=== PATIENT | male | born 1965 | race Caucasian/White ===

== ENCOUNTER 2021-12-30 13:08 | Day surgery (SDC) | payer OTHER ==
[2021-12-28 16:43] VITALS: BMI 29.4
[~2021-12-30 13:08] MED LIST: BUPIVACAINE HCL 100 ML ONE; BUPIVACAINE LIPOSOME/PF (EXPAREL) 266 MG/20 ML VIAL ONE; CEFAZOLIN 2 GM in DEXTROSE 5%-WATER - 50 ML IVPB ONE; DEXAMETHASONE SOD PHOSPHATE 4 MG/1 ML VIAL ONE; HYDROmorphone HCL/PF 1 MG/ML VIAL ONE; KETOROLAC TROMETHAMINE 30 MG/1 ML VIAL ONE; MAG HYDROX/AL HYDROX/SIMETH 30 ML UNIT-DOSE CUP PO PRN; MAGNESIUM HYDROX 2400MG/30ML ORAL SUSPENSION 30 ML CUP PO PRN; MIDAZOLAM HCL 2 MG/2 ML SINGLE DOSE VIAL ONE; ONDANSETRON 4 MG/2 ML VIAL IVPUSH PRN; ONDANSETRON 4 MG/2 ML VIAL ONE; PROPOFOL 40 ML ONE; ROCURONIUM BROMIDE 50 MG/5 ML SYRINGE ONE; SUCCINYLCHOLINE CHLORIDE 200 MG/10 ML SYRINGE ONE; TRANEXAMIC ACID 1000 MG/10 ML VIAL IVPUSH ONE; TRANEXAMIC ACID 1000 MG/10 ML VIAL ONE; VANCOMYCIN 1,000 MG VIAL (RESTRICTED TO ID ONLY) ONE
[2021-12-30] MEDS ORDERED: ACETAMINOPHEN 1000 MG/100 ML BAG IVPB ONE ×2 (13:12)
[2021-12-30] MEDS ORDERED: oxyCODONE HCL 5 MG TABLET PO PRN ×4 (13:12→13:39)
[2021-12-30] MEDS ORDERED: ACETAMINOPHEN 500 MG TABLET (FP) PO SCH (13:15)
[2021-12-30] MEDS ORDERED: LACTATED RINGERS SOLUTION 1,000 ML IV SCH ×2 (13:15→13:45)
[2021-12-30] MEDS ORDERED: KETOROLAC TROMETHAMINE 30 MG/1 ML VIAL IVPUSH SCH (13:15)
[2021-12-30] MEDS ORDERED: MAG HYDROX/AL HYDROX/SIMETH 30 ML UNIT-DOSE CUP PO PRN (13:39)
[2021-12-30] MEDS ORDERED: MAGNESIUM HYDROX 2400MG/30ML ORAL SUSPENSION 30 ML CUP PO PRN (13:39)
[2021-12-30] MEDS ORDERED: ONDANSETRON 4 MG/2 ML VIAL IVPUSH PRN (13:39)
[2021-12-30] MEDS: KETOROLAC TROMETHAMINE 30 MG/1 ML VIAL IVPUSH SCH ×2 (15:47→21:17)
[2021-12-30] MEDS ORDERED: CEFAZOLIN SODIUM 2 GM in DEXTROSE 5%-WATER 100 ML IVPB SCH (17:00)
[2021-12-30] MEDS: CEFAZOLIN SODIUM 2 GM in DEXTROSE 5%-WATER 100 ML IVPB SCH (17:11)
[2021-12-30] MEDS ORDERED: VANCOMYCIN 1 GM in D5W (PRE-DOCKED) 1,000 MG/250 ML IVPB ONE ×2 (17:30→21:30)
[2021-12-30] MEDS: ACETAMINOPHEN 500 MG TABLET (FP) PO SCH (21:15)
[2021-12-30] MEDS: ASPIRIN 325 MG TABLET PO SCH (21:16)
[2021-12-30] MEDS: SENNOSIDES/DOCUSATE COMBO (SENNA PLUS) TABLET (UD) PO SCH (21:16)
[2021-12-30] MEDS ORDERED: SENNOSIDES/DOCUSATE COMBO (SENNA PLUS) TABLET (UD) PO SCH (22:00)
[2021-12-30] MEDS ORDERED: oxyCODONE HCL 10 MG SUSTAINED ACTING TABLET PO SCH (22:00)
[2021-12-30] MEDS ORDERED: ASPIRIN 325 MG TABLET PO SCH (22:00)
[2021-12-30] MEDS: oxyCODONE HCL 10 MG SUSTAINED ACTING TABLET PO SCH (23:09)
[2021-12-31] MEDS: CEFAZOLIN SODIUM 2 GM in DEXTROSE 5%-WATER 100 ML IVPB SCH ×2 (02:03→09:07)
[2021-12-31] MEDS: ACETAMINOPHEN 500 MG TABLET (FP) PO SCH ×3 (02:03→09:08)
[2021-12-31 08:30] LABS: HEMATOCRIT 36.4 % (35.4-49); HEMOGLOBIN 12.7 G/dL (11.7-16.9); MCH 31.4 pg (25.7-33.7); MCHC 34.9 g/dl (32.0-35.9); MEAN PLT VOLUME 8.8 fl (7.5-11.1); PLATELET COUNT 256.9 10^3/uL (134-434); RBC 4.04 10^6/uL (4.00-5.60); RDW 13.4 % (11.9-15.9)
[2021-12-31 08:35] LABS: CALCIUM 8.6 mg/dl (8.5-10); CREATININE 0.9 mg/dl (0.55-1.3)
[2021-12-31] MEDS ORDERED: MULTIVITAMINS (DAILY MVI) TABLET (FP) PO SCH ×2 (10:00)
[2021-12-31] MEDS ORDERED: LISINOPRIL 5 MG TABLET PO SCH ×2 (10:00)
[2021-12-31] MEDS ORDERED: HYDROCHLOROTHIAZIDE 25 MG TABLET (FP) PO SCH ×2 (10:00)
[2021-12-31] MEDS ORDERED: PANTOPRAZOLE 40 MG TABLET PO SCH ×2 (10:00)
[2021-12-31] MEDS ORDERED: ASPIRIN 325 MG TABLET PO SCH (10:00)
[2021-12-31] MEDS: ASPIRIN 325 MG TABLET PO SCH (10:04)
[2021-12-31] MEDS: SENNOSIDES/DOCUSATE COMBO (SENNA PLUS) TABLET (UD) PO SCH (10:05)
[2021-12-31 10:33] VITALS: RESP 14
[2021-12-31] MEDS: oxyCODONE HCL 10 MG SUSTAINED ACTING TABLET PO SCH (11:01)
[2021-12-31 14:22] VITALS: BP 111/71; PULSE 87; TEMP 97.6
== END 2021-12-31 16:09 | disposition home or self-care (01) ==
LOC: FASUSAT 13:08 → SUATTDRO 13:08 → FM/S 14:54 → FASUSAT 12-31 16:09
PROVIDERS: ATTEND Nurse Practitioner Family
PROC: 0RNK0ZZ Release Left Shoulder Joint, Open Approach (ICD-10-PCS; 2021-12-30)
PROC: 0LS40ZZ Reposition Left Upper Arm Tendon, Open Approach (ICD-10-PCS; 2021-12-30)
PROC: 0RRK0J6 Replacement of Left Shoulder Joint with Synthetic Substitute, Humeral Surface, Open Approach (ICD-10-PCS; principal; 2021-12-30 09:54)
DX: M24.412 Recurrent dislocation, left shoulder (principal); S42.292A Other displaced fracture of upper end of left humerus, initial encounter for closed fracture; M75.22 Bicipital tendinitis, left shoulder; M94.212 Chondromalacia, left shoulder; X58.XXXA Exposure to other specified factors, initial encounter; Y93.9 Activity, unspecified; Y92.9 Unspecified place or not applicable
CPT/HCPCS: 23020; 23430; 23470; C1713; 36415; 73030-TC-LT-FY; 80048; 85027; 88304-TC; 88311-TC; 94760; C1776

== ENCOUNTER 2022-09-08 05:25 | Day surgery (SDC) | payer OTHER ==
[2022-09-07 13:32] VITALS: BMI 29.4
[~2022-09-08 05:25] MED LIST changes: -BUPIVACAINE HCL 100 ML ONE; +BUPIVACAINE HCL/PF 0.75% 10 ML VIAL NR ONE; -BUPIVACAINE LIPOSOME/PF (EXPAREL) 266 MG/20 ML VIAL ONE; -CEFAZOLIN 2 GM in DEXTROSE 5%-WATER - 50 ML IVPB ONE; -DEXAMETHASONE SOD PHOSPHATE 4 MG/1 ML VIAL ONE; -HYDROmorphone HCL/PF 1 MG/ML VIAL ONE; -KETOROLAC TROMETHAMINE 30 MG/1 ML VIAL ONE; +LIDOCAINE 1% P/F 10 MG/ML VIAL INF ONE; -MAG HYDROX/AL HYDROX/SIMETH 30 ML UNIT-DOSE CUP PO PRN; -MAGNESIUM HYDROX 2400MG/30ML ORAL SUSPENSION 30 ML CUP PO PRN; -MIDAZOLAM HCL 2 MG/2 ML SINGLE DOSE VIAL ONE; -ONDANSETRON 4 MG/2 ML VIAL IVPUSH PRN; -ONDANSETRON 4 MG/2 ML VIAL ONE; -PROPOFOL 40 ML ONE; -ROCURONIUM BROMIDE 50 MG/5 ML SYRINGE ONE; -SUCCINYLCHOLINE CHLORIDE 200 MG/10 ML SYRINGE ONE; -TRANEXAMIC ACID 1000 MG/10 ML VIAL IVPUSH ONE; -TRANEXAMIC ACID 1000 MG/10 ML VIAL ONE; -VANCOMYCIN 1,000 MG VIAL (RESTRICTED TO ID ONLY) ONE
[2022-09-08] MEDS ORDERED: LIDOCAINE 1% P/F 10 MG/ML VIAL INF ONE (12:17)
[2022-09-08] MEDS ORDERED: BUPIVACAINE HCL/PF 0.75% 10 ML VIAL NR ONE (12:17)
[2022-09-08 16:30] VITALS: RESP 18
[2022-09-08 16:32] VITALS: BP 128/72; PULSE 60; TEMP 98.2
[2022-09-08] MEDS ORDERED: ACETAMINOPHEN 500 MG TABLET (FP) PO PRN (16:41)
== END 2022-09-08 12:24 | disposition home or self-care (01) ==
LOC: JASU-SURG 05:25
PROVIDERS: ATTEND Pain Medicine Pain Medicine
PROC: 3E0T33Z Introduction of Anti-inflammatory into Peripheral Nerves and Plexi, Percutaneous Approach (ICD-10-PCS; 2022-09-08)
PROC: 3E0T3BZ Introduction of Anesthetic Agent into Peripheral Nerves and Plexi, Percutaneous Approach (ICD-10-PCS; principal; 2022-09-08 13:15)
DX: M47.816 Spondylosis without myelopathy or radiculopathy, lumbar region (principal)
CPT/HCPCS: 76000-TC-FY

== ENCOUNTER 2022-10-03 05:04 | Day surgery (SDC) | payer OTHER ==
[2022-09-27 13:09] VITALS: BMI 30.7
[~2022-10-03 05:04] MED LIST changes: -LIDOCAINE 1% P/F 10 MG/ML VIAL INF ONE
[2022-10-03] MEDS ORDERED: BUPIVACAINE HCL/PF 0.75% 10 ML VIAL ONE (07:26)
[2022-10-03] MEDS ORDERED: LIDOCAINE HCL/PF 1% SDV 5ML VIAL ONE (07:26)
[2022-10-03] MEDS ORDERED: ACETAMINOPHEN 500 MG TABLET (FP) PO PRN (08:20)
[2022-10-03] MEDS ORDERED: LIDOCAINE HCL 1% PRESERVATIVE FREE - 30ML VIAL IJ ONE (14:15)
[2022-10-03] MEDS ORDERED: BUPIVACAINE HCL/PF 0.75% 10 ML VIAL NR ONE (14:19)
[2022-10-03 16:28] VITALS: BP 134/89; PULSE 77; RESP 18; TEMP 98.1
== END 2022-10-03 14:50 | disposition home or self-care (01) ==
LOC: JASU-SURG 05:04
PROVIDERS: ATTEND Pain Medicine Pain Medicine
PROC: 3E0T33Z Introduction of Anti-inflammatory into Peripheral Nerves and Plexi, Percutaneous Approach (ICD-10-PCS; 2022-10-03)
PROC: 3E0T3BZ Introduction of Anesthetic Agent into Peripheral Nerves and Plexi, Percutaneous Approach (ICD-10-PCS; principal; 2022-10-03 14:00)
DX: M47.816 Spondylosis without myelopathy or radiculopathy, lumbar region (principal)
CPT/HCPCS: 76000-TC-FY

== ENCOUNTER 2022-10-24 04:53 | Day surgery (SDC) | payer OTHER ==
[2022-10-20 14:38] VITALS: BMI 30.7
[2022-10-24] MEDS ORDERED: ACETAMINOPHEN 500 MG TABLET (FP) PO PRN (09:48)
[2022-10-24 13:43] VITALS: RESP 20
[2022-10-24] MEDS ORDERED: LIDOCAINE HCL 1% PRESERVATIVE FREE - 30ML VIAL IJ ONE (14:43)
[2022-10-24] MEDS ORDERED: LIDOCAINE HCL/PF 2% SDV 5ML VIAL INF ONE (14:46)
[2022-10-24] MEDS ORDERED: DEXAMETHASONE SOD PHOSPHATE 10 MG/1 ML VIAL IVPUSH ONE (14:47)
[2022-10-24] MEDS ORDERED: BUPIVACAINE HCL/PF 0.75% 10 ML VIAL NR ONE (14:47)
[2022-10-24 16:11] VITALS: BP 126/78; PULSE 66; TEMP 97.8
== END 2022-10-24 16:00 | disposition home or self-care (01) ==
LOC: JASU-SURG 04:53
PROVIDERS: ATTEND Pain Medicine Pain Medicine
PROC: 015B3ZZ Destruction of Lumbar Nerve, Percutaneous Approach (ICD-10-PCS; principal; 2022-10-24 14:00)
DX: M47.816 Spondylosis without myelopathy or radiculopathy, lumbar region (principal)
CPT/HCPCS: 76000-TC-FY; J1100

== ENCOUNTER 2022-11-21 04:50 | Day surgery (SDC) | payer OTHER ==
[2022-11-20 13:41] VITALS: BMI 30.5
[~2022-11-21 04:50] MED LIST changes: -BUPIVACAINE HCL/PF 0.75% 10 ML VIAL NR ONE; +LIDOCAINE HCL 1% PRESERVATIVE FREE - 30ML VIAL IJ ONE; +LIDOCAINE HCL/PF 2% SDV 5ML VIAL INF ONE
[2022-11-21 12:23] VITALS: RESP 18
[2022-11-21] MEDS ORDERED: DEXAMETHASONE SOD PHOSPHATE 10 MG/1 ML VIAL ONE (13:24)
[2022-11-21] MEDS ORDERED: DEXAMETHASONE SOD PHOSPHATE 10 MG/1 ML VIAL IVPUSH ONE (13:50)
[2022-11-21] MEDS ORDERED: BUPIVACAINE HCL/PF 0.75% 10 ML VIAL NR ONE (13:50)
[2022-11-21] MEDS ORDERED: LIDOCAINE HCL/PF 2% SDV 5ML VIAL INF ONE (13:50)
[2022-11-21] MEDS ORDERED: LIDOCAINE HCL 1% PRESERVATIVE FREE - 30ML VIAL IJ ONE (13:50)
[2022-11-21 14:17] VITALS: TEMP 97.9
[2022-11-21 15:16] VITALS: BP 137/85; PULSE 67
== END 2022-11-21 14:35 | disposition home or self-care (01) ==
LOC: JASU-SURG 04:50
PROVIDERS: ATTEND Pain Medicine Pain Medicine
PROC: 015B3ZZ Destruction of Lumbar Nerve, Percutaneous Approach (ICD-10-PCS; principal; 2022-11-21 13:15)
DX: M47.819 Spondylosis without myelopathy or radiculopathy, site unspecified (principal)
CPT/HCPCS: 76000-TC-FY; J1100